=== PATIENT | female | born 1940 | race Caucasian/White ===

== ENCOUNTER 2019-06-14 23:53 | Emergency (ER) | payer MEDICARE, OTHER ==
--- NOTE | 2019-06-15 00:26 | ER Document Report ---
ED Syncope and Near Syncope - General Chief Complaint: Syncope Stated Complaint: SYNCOPE Time Seen by Provider: 06/15/19 00:24 Primary Care Provider: TAHIRA CASTANEDA MD [Primary Care Provider] - Follow up as needed Information source: Patient - Patient's spouse also relates history - HPI Patient complains to provider of: Nearly fainting Episode witnessed (by whom): No Single episoded occurred: Home Notes: 78-year-old female presents for evaluation of questionable syncope versus near syncope episode that occurred at the patient's home earlier this evening. Patient states that she was sitting at her kitchen table in a roller type chair typing on her laptop and looking at Facebook when she had a sudden change in level of consciousness and then was found by her on the kitchen floor. Patient states that she knows that she did not hit her head and that when she came out of the chair she turned towards the floor and landed on her elbows and effort to support herself if she landed on the floor. Patient is complaining of burning and skin tears bilateral elbows respectively. Patient states that her p.o. intake has been decreased over the past 10 days, ever since she had her last 6 lower teeth removed by her dentist. Patient states that she has been trying to drink some boost supplements. Patient states that her overall p.o. intake is decreased from her normal. Patient denies chest pain. Patient's is at bedside and relates history patient's states that the pa tient had a transient period of shaking when he found her on the floor. states patient took 1 Tylenol No. 3 about 30 minutes prior to the onset of symptoms. - Related Data Allergies/Adverse Reactions: No Known Allergies Allergy (Unverified 04/22/14 11:42) Past Medical History - General Information source: Patient - Social History Smoking Status: Unknown if Ever Smoked Lives with: Spouse/Significant other Family History: Reviewed & Not Pertinent Patient has suicidal ideation: No Patient has homicidal ideation: No - Past Medical History Cardiac Medical History: Denies: Hx Heart Attack, Hx Hypertension Pulmonary Medical History: Denies: Hx Asthma Neurological Medical History: Denies: Hx Cerebrovascular Accident, Hx Seizures GI Medical History: Reports: Hx Ulcer. Denies: Hx Hepatitis, Hx Hiatal Hernia Infectious Medical History: Denies: Hx Hepatitis Past Surgical History: Reports: Hx Hysterectomy. Denies: Hx Mastectomy, Hx Open Heart Surgery, Hx Pacemaker Review of Systems - Review of Systems Constitutional: See HPI EENT: denies: Double vision Cardiovascular: denies: Chest pain, Palpitations Respiratory: Other - Patient reports having a brief episode of rapid respirations after her reported shaking episode Gastrointestinal: No symptoms reported Genitourinary: No symptoms reported Female Genitourinary: No symptoms reported Musculoskeletal: No symptoms reported Skin: Other - Skin tears on bilateral upper extremities Hematologic/Lymphatic: No symptoms reported Neurological/Psychological: Other - Altered level of consciousness, transient Physical Exam - Vital signs Vitals: Temp Resp BP Pulse Ox 98.0 F 15 105/53 L 100 06/15/19 00:12 06/15/19 00:12 06/15/19 00:12 06/15/19 00:12 - General General appearance: Appears well, Alert In distress: None - HEENT Head: Normocephalic, Atraumatic Eyes: Normal Conjunctiva: Normal Cornea: Normal Extraocular movements intact: Yes Pupils: No: Dilated, Fixed, Pinpoint Neck: Normal, Supple, Other - Nontender to palpation, anterior and posterior aspects - Respiratory Respiratory status: No respiratory distress Chest status: Nontender Breath sounds: Normal Chest palpation: Normal - Cardiovascular Rhythm: Regular Heart sounds: Normal auscultation Murmur: No Friction rub: No - Abdominal Inspection: Normal Distension: No distension Bowel sounds: Normal Tenderness: Nontender - Back Back: Other - Patient is significantly kyphotic. No: Tender, Deformity/step- off, CVA tenderness, Vertebra tenderness - Extremities General upper extremity: Other - Patient has skin tears on both of her forearms. On the left forearm she has three 1 cm skin tears on the anterior aspect of her forearm. On her right forearm she has a 3 cm skin tear on the dorsal aspect of her proximal forearm just beneath her elbow joint. All wounds are hemostatic and superficial. General lower extremity: Normal inspection, Nontender Shoulder: Normal Arm: Normal Elbow: Abrasion. No: Deformity, Dislocation, Limited ROM Forearm: Tender, Abrasion. No: Deformity, Ecchymosis, Instability, Laceration Wrist: Normal, Nontender. No: Deformity Hand: Normal, Nontender - Neurological Neuro grossly intact: Yes Cognition: Normal Orientation: AAOx4 Stephen Coma Scale Eye Opening: Spontaneous Stephen Coma Scale Verbal: Oriented Fani Coma Scale Motor: Obeys Commands Fani Coma Scale Total: 15 Speech: Normal - Psychological Associated symptoms: Normal affect, Normal mood - Skin Skin irregularity: other - Please refer to musculoskeletal exam above Course - Re-evaluation Re-evalutation: 06/15/19 03:46 Patient is in no acute distress. Patient's abrasions have been cleaned and dressed. All relevant laboratory findings have been discussed with patient and patient's spouse. CT and EKG findings also discussed with patient and patient spouse. Patient and patient's spouse understand findings and plan of treatment as described to them. All questions have been answered prior to discharge. Differential diagnosis: Dehydration, orthostatic hypotension, electrolyte abnormality, intracranial injury, skin abrasion, skin tear Assessment and plan: This is a 78-year-old female who presented to the emergency department after having a altered mental status episode at home. Impression: Secondary to decreased p.o. intake related to dental procedure and use of Tylenol with codeine, the patient had a transient episode of altered mental status followed by an accidental fall. This likely resulted in a transient low flow state to the patient's cerebellar and cerebral tissue which caused an episode of generalized tonic-clonic activity. There is no subjective or objective data to suggest a central cause of syncope. Findings are not consistent with a ST elevation or non-ST elevation MA. Laboratory findings are suggestive of dehydration and a urinary tract infection. Plan: Macrobid 100 mg p.o. twice daily x7 days, first dose to be given now in ED prior to discharge. Patient will be given instructions about urinary tract infections, dehydration. Patient and patient's spouse were informed of signs/symptoms, reasons to return to the emergency department. Patient and patient's spouse expressed understanding of this discussion. Patient and patient's spouse stated they had no further questions at the time of discharge. - Vital Signs Vital signs: Temp Pulse Resp BP Pulse Ox 98.0 F 62 19 129/59 H 99 06/15/19 00:12 06/15/19 01:11 06/15/19 03:01 06/15/19 03:01 06/15/19 03:01 - Laboratory Result Diagrams: 06/15/19 00:11 06/15/19 00:11 Laboratory results interpreted by me: 06/15/19 06/15/19 00:11 02:26 BUN 23 H Creatinine 1.26 H Est GFR ( Amer) 50 L Est GFR (MDRD) Non-Af 41 L Urine Ketones TRACE H Urine Bilirubin SMALL H Urine Urobilinogen 2.0 H Leukocyte Esterase Rfl MODERATE H All significant laboratory findings interpreted by this MD. - Diagnostic Test Radiology reviewed: Reports reviewed - EKG Interpretation by Me Additional EKG results interpreted by me: 06/15/19 03:55 EKG performed in ED upon patient arrival reviewed and interpreted by this MD. Interpretation: Normal sinus rhythm, heart rate 70, normal axis, normal P waves, normal QRS complex, no ST elevation or depression noted. Impression nonspecific EKG with no acute myocardial injury findings. Discharge - Discharge Clinical Impression: Altered mental status, Vasovagal episode, Dehydration, Acute cystitis Condition: Good Disposition: HOME, SELF-CARE Instructions: Urinary Tract Infection ([facility]), Dehydration ([facility]), Vasovagal Symptoms ([facility]) Additional Instructions: Return to the Emergency Department without delay if any worse. Prescriptions: Nitrofurantoin/Nitrofuran Mac [Macrobid 100 mg Capsule] 1 tab PO BID #20 capsule Referrals: TAHIRA CASTANEDA MD [Primary Care Provider] - Follow up as needed
[2019-06-15] MEDS ORDERED: BACITRACIN ZINC OINTMENT 15 GM TP ONE (00:51)
[2019-06-15] MEDS ORDERED: BACITRACIN ZINC OINTMENT 15 GM ONE (01:39)
[2019-06-15 01:47] LABS: ABSOLUTE EOSINOPHILS # (AUTO) 0.1 10^3/uL (0.0-0.6); ABSOLUTE LYMPHOCYTES (AUTO) 2.6 10^3/uL (0.5-4.7); ABSOLUTE MONOCYTES (AUTO) 0.5 10^3/uL (0.1-1.4); ABSOLUTE NEUT (AUTO) 4.9 10^3/uL (1.7-8.2); BASOPHILS % (AUTO) 0.4 % (0-2); EOSINOPHILS % (AUTO) 1.1 % (0-6); HEMATOCRIT 36.1 % (36.0-47.0); HEMOGLOBIN 12.2 g/dL (12.0-15.5); LYMPHOCYTES % (AUTO) 31.7 % (13-45); MEAN CORPUSCULAR HEMOGLOBIN 30.8 pg (27.0-33.4); MEAN CORPUSCULAR HGB CONC 33.8 g/dL (32.0-36.0); MEAN CORPUSCULAR VOLUME 91 fl (80-97); MONOCYTES % (AUTO) 6.4 % (3-13); PLATELET COUNT 230 10^3/uL (150-450); RED BLOOD COUNT 3.96 10^6/uL (3.72-5.28); RED CELL DISTRIBUTION WIDTH 13.3 % (11.5-14.0); SEGMENTED NEUTROPHILS % (AUTO) 60.4 % (42-78); TOTAL CELLS COUNTED % (AUTO) 100 %; WHITE BLOOD COUNT 8.2 10^3/uL (4.0-10.5)
[2019-06-15 01:50] LABS: ALBUMIN 4.1 g/dL (3.5-5.0); ALKALINE PHOSPHATASE 70 U/L (38-126); ANION GAP 11 (5-19); ASPARTATE AMINO TRANSFERASE 20 U/L (14-36); BILIRUBIN,DIRECT 0.3 mg/dL (0.0-0.4); BILIRUBIN,TOTAL 0.4 mg/dL (0.2-1.3); BLOOD UREA NITROGEN 23 mg/dL (7-20); CALCIUM 9.9 mg/dL (8.4-10.2); CARBON DIOXIDE 27 mmol/L (22-30); CHLORIDE 100 mmol/L (98-107); GLUCOSE 98 mg/dL (75-110)
--- NOTE | 2019-06-15 02:24 | RADIOLOGY REPORT (SQ) ---
CT HEAD WITHOUT IV CONTRAST EXAM DATE: 06/14/2019 11:58 PM CDT HISTORY: Syncope, unequal pupils. COMPARISON: None. TECHNIQUE: CT scan of the brain without IV contrast. This exam was performed according to our departmental dose-optimization program, which includes automated exposure control, adjustment of the mA and/or kV according to patient size and/or use of iterative reconstruction technique. FINDINGS: The ventricles, cisterns, and sulci are age-appropriate. No evidence of acute infarction, intracranial hemorrhage, extra-axial fluid collection, or midline shift. No air-fluid levels are seen in the paranasal sinuses to suggest acute sinusitis. No depressed skull fracture. IMPRESSION: No acute intracranial findings.
[2019-06-15] MEDS ORDERED: NORMAL SALINE 500 ML IV ONE (02:37)
[2019-06-15 02:55] LABS: APPEARANCE,URINE CLOUDY; BILIRUBIN,URINE SMALL (NEGATIVE); GLUCOSE, URINE NEGATIVE (NEGATIVE); KETONES,URINE TRACE mg/dL (NEGATIVE); PROTEIN,URINE NEGATIVE (NEGATIVE)
[2019-06-15 03:00] LABS: COLOR,URINE DARK YELLOW
[2019-06-15 03:05] VITALS: BP 129/59
[2019-06-15] MEDS ORDERED: NITROFURANTOIN MONOHYD/M-CRYST 100 MG CAPSULE PO ONE (03:51)
--- NOTE | 2019-06-15 08:15 | EKG REPORT ---
SEVERITY:- ABNORMAL ECG - ACCELERATED JUNCTIONAL RHYTHM : Confirmed by: Milton Moe MD 15-Jun-2019 08:14:41
== END 2019-06-15 04:14 | disposition home or self-care (01) ==
LOC: ER 23:53
DX: R55 Syncope and collapse (principal); N30.00 Acute cystitis without hematuria; R41.82 Altered mental status, unspecified; E86.0 Dehydration; S50.812A Abrasion of left forearm, initial encounter; S50.811A Abrasion of right forearm, initial encounter; W19.XXXA Unspecified fall, initial encounter; Y92.000 Kitchen of unspecified non-institutional (private) residence as the place of occurrence of the external cause
CPT/HCPCS: 93005; 99284; 96360; 36415; 87086; 83735; 85025; 80053; 81001; 84484; 70450; 93010; J3490; J7040; A9270; J8499